=== PATIENT | male | born 1975 | race African-American/Black ===

== ENCOUNTER 2017-07-07 16:34 | Emergency (ER) | payer MEDICAID ==
[~2017-07-07] VITALS: Ht 177.8 cm; Wt 90.0 kg
[2017-07-07] MEDS ORDERED: TETANUS, DIPHTHERIA, PERTUSSIS VAC/PF 0.5ML (>7YR OLD) IM ONE (18:15)
[2017-07-07] MEDS ORDERED: BACITRACIN ZINC OINT UDPKT TOP ONE (18:15)
[2017-07-07 21:30] VITALS: BP 123/84
== END 2017-07-07 21:34 | disposition home or self-care (01) ==
LOC: ER 18:44
DX: L84 Corns and callosities (principal); M79.645 Pain in left finger(s); F20.9 Schizophrenia, unspecified
CPT/HCPCS: 73130; 90471; 90715; 99284